=== PATIENT | female | born 1995 | race Caucasian/White ===

== ENCOUNTER 2021-02-04 02:42 | Emergency (ER) | payer OTHER ==
[2021-02-04 03:13] VITALS: BP 116/68; BMI 29.4
[2021-02-04] MEDS ORDERED: ACETAMINOPHEN 325 MG TABLET (FP) PO ONE (03:36)
[2021-02-04] MEDS ORDERED: ACETAMINOPHEN 325 MG TABLET (FP) ONE (03:53)
[2021-02-04 04:37] LABS: EPI CELLS 27 /uL (0-25.1); HYALINE CASTS 0 /uL (0-3.1); PH,URINE 7.5 (5.0-8.0); URINE APPEARANCE CLEAR; URINE BACTERIA 662 /uL (0-1359); URINE BILIRUBIN NEGATIVE (NEGATIVE); URINE COLOR YELLOW; URINE GLUCOSE (UA) NEGATIVE (NEGATIVE); URINE KETONE NEGATIVE (NEGATIVE); URINE LEUK ESTERASE 3+ (NEGATIVE); URINE NITRITE NEGATIVE (NEGATIVE); URINE PROTEIN NEGATIVE (NEGATIVE); URINE RBC 1 /uL (0-23.9); URINE UROBILINOGEN 0.2 mg/dL (0.2-1.0); URINE WBC 60 /uL (0-25.8)
[2021-02-04 05:16] VITALS: PULSE 110; TEMP 99.6
== END 2021-02-04 05:17 | disposition home or self-care (01) ==
LOC: JER 02:42
DX: O23.43 Unspecified infection of urinary tract in pregnancy, third trimester (principal); B34.9 Viral infection, unspecified; Z3A.29 29 weeks gestation of pregnancy
CPT/HCPCS: 81003; 87086; 87804; 87807; 99283-25; C9803; U0003; U0005

== ENCOUNTER 2021-04-09 17:00 | Inpatient (IN) | payer OTHER ==
[2021-04-09] MEDS ORDERED: ELECTROLYTE-148 SOLN 500 ML IV ONE ×2 (17:35→23:00)
[2021-04-09] MEDS ORDERED: AMPICILLIN SODIUM 2 GM VIAL ONE (17:45)
[2021-04-09] MEDS ORDERED: SODIUM CHLORIDE 100 ML IVPB ONE (17:45)
[2021-04-09] MEDS ORDERED: AMPICILLIN - 2 GM in SODIUM CHLORIDE 100 ML IVPB ONE (18:00)
[2021-04-09 18:18] LABS: BASO % 0.3 % (0-2.0); EOS % 0.6 % (0-4.5); HEMATOCRIT 36.5 % (32.4-45.2); HEMOGLOBIN 12.2 GM/dL (10.7-15.3); LYMPH % 8.9 % (8-40); MCH 26.3 pg (25.7-33.7); MCHC 33.4 g/dl (32.0-36.0); MEAN CELL VOLUME 78.7 fl (80-96); MEAN PLT VOLUME 8.4 fl (7.5-11.1); MONO % 6.5 % (3.8-10.2); NEUT % 83.7 % (42.8-82.8); PLATELET COUNT 316 10^3/uL (134-434); RBC 4.64 M/mm3 (3.60-5.2); RDW 15.9 % (11.6-15.6); WHITE BLOOD COUNT 12.2 K/mm3 (4.0-10.0)
[2021-04-09 18:26] LABS: INR 0.91 (0.83-1.09); PROTHROMBIN TIME (PATIENT) 10.5 SEC (9.7-13.0)
[2021-04-09 18:29] LABS: ACTIVATED PTT 28.4 SECONDS (25.2-36.5)
[2021-04-09 18:35] VITALS: BMI 32.0
[2021-04-09 18:44] LABS: CALCIUM 8.4 mg/dL (8.5-10.1)
[2021-04-09 18:45] LABS: BLOOD UREA NITROGEN 4.6 mg/dL (7-18)
[2021-04-09 18:48] LABS: CREATININE 0.5 mg/dL (0.55-1.3)
[2021-04-09] MEDS: ELECTROLYTE-148 SOLN 1,000 ML IV SCH (21:15)
[2021-04-09] MEDS: AMPICILLIN - 1 GM in SODIUM CHLORIDE 100 ML IVPB SCH (22:00)
[2021-04-09] MEDS ORDERED: AMPICILLIN SODIUM 1 GM VIAL ONE (22:03)
[2021-04-09] MEDS ORDERED: morphine SULFATE/PF 1 MG/2 ML (2cc Syringe - QUVA) ONE (22:25)
[2021-04-09] MEDS ORDERED: CITRIC ACID/SODIUM CITRATE 30 ML UNIT-DOSE CUP PO ONE ×2 (23:00)
[2021-04-09] MEDS ORDERED: ceFAZolin SODIUM 1 GM VIAL ONE (23:40)
[2021-04-09] MEDS ORDERED: OXYTOCIN 10 UNITS/ML VIAL ONE (23:40)
[2021-04-10] MEDS ORDERED: ELECTROLYTE-148 SOLN 500 ML IV ONE
[2021-04-10] MEDS ORDERED: OXYTOCIN 10 UNITS/ML VIAL ONE (00:27)
[2021-04-10] MEDS ORDERED: KETOROLAC TROMETHAMINE 30 MG/1 ML VIAL ONE (00:27)
[2021-04-10] MEDS ORDERED: DEXAMETHASONE SOD PHOSPHATE 4 MG/1 ML VIAL ONE (00:27)
[2021-04-10] MEDS ORDERED: ONDANSETRON 4 MG/2 ML VIAL ONE (00:27)
[2021-04-10] MEDS ORDERED: ACETAMINOPHEN 325 MG TABLET (FP) PO PRN ×2 (01:18→01:29)
[2021-04-10] MEDS ORDERED: WITCH HAZEL 50% (TUCKS) 40 PAD/JAR PAD TP PRN (01:18)
[2021-04-10] MEDS ORDERED: IBUPROFEN 800 MG/8 ML IJ IVPB PRN (01:18)
[2021-04-10] MEDS ORDERED: METHYLERGONOVINE MALEATE 0.2 MG/1 ML AMP IM PRN (01:18)
[2021-04-10] MEDS ORDERED: ONDANSETRON 4 MG/2 ML VIAL IVPUSH PRN (01:29)
[2021-04-10] MEDS ORDERED: morphine SULFATE/PF 1 MG/2 ML (2cc Syringe - QUVA) EP ONE (01:29)
[2021-04-10] MEDS ORDERED: OXYTOCIN 20 UNITS in 0.9% NS 20 UNIT/1,000 ML INFUS.BAG IV SCH (01:30)
[2021-04-10 01:41] LABS: CORD BASE EXCESS -8.9 mmol/L (0-2); CORD HCO3 20.7 mmHg (20-29); CORD pH 7.156 (7.14-7.44)
[2021-04-10] MEDS ORDERED: OXYTOCIN 20 UNITS in 0.9% NS 20 UNIT/1,000 ML INFUS.BAG IV ONE (01:46)
[2021-04-10 01:49] LABS: CORD HCO3 22.9 mmHg (20-29); CORD PCO2 77.7 mmHg (30-78); CORD pH 7.088 (7.14-7.44)
[2021-04-10] MEDS: AMPICILLIN - 1 GM in SODIUM CHLORIDE 100 ML IVPB SCH ×2 (03:18→06:38)
[2021-04-10] MEDS: ENOXAPARIN NA (PORCINE) 40 MG/0.4 ML DISP.SYRIN SQ SCH (09:28)
[2021-04-10] MEDS: PRENATAL VITAMINS W/ FOLIC ACID TABLET (FP) PO SCH (09:31)
[2021-04-10] MEDS ORDERED: oxyCODONE HCL 5 MG TABLET PO PRN ×2 (13:19)
[2021-04-10 15:07] LABS: SARS-CoV-2 NAA Not Detected (Not Detected)
[2021-04-10] MEDS: IBUPROFEN 600 MG TABLET (FP) PO PRN (20:46)
[2021-04-10] MEDS: SIMETHICONE 80 MG TAB.CHEW (FP) PO PRN (20:47)
[2021-04-10] MEDS: ELECTROLYTE-148 SOLN 1,000 ML IV SCH (22:05)
[2021-04-11] MEDS ORDERED: BISACODYL 10 MG SUPP.RECT RC PRN (01:19)
[2021-04-11] MEDS: IBUPROFEN 600 MG TABLET (FP) PO PRN ×3 (08:02→23:14)
[2021-04-11] MEDS: SIMETHICONE 80 MG TAB.CHEW (FP) PO PRN ×3 (08:02→23:14)
[2021-04-11 09:25] LABS: BASO % 0.2 % (0-2.0); EOS % 1.3 % (0-4.5); HEMATOCRIT 31.1 % (32.4-45.2); LYMPH % 16.9 % (8-40); MCH 25.9 pg (25.7-33.7); MCHC 32.2 g/dl (32.0-36.0); MEAN CELL VOLUME 80.4 fl (80-96); MEAN PLT VOLUME 8.6 fl (7.5-11.1); MONO % 6.1 % (3.8-10.2); NEUT % 75.5 % (42.8-82.8); PLATELET COUNT 287 10^3/uL (134-434); RBC 3.87 M/mm3 (3.60-5.2); RDW 16.7 % (11.6-15.6); WHITE BLOOD COUNT 9.8 K/mm3 (4.0-10.0)
[2021-04-11] MEDS: ENOXAPARIN NA (PORCINE) 40 MG/0.4 ML DISP.SYRIN SQ SCH (09:44)
[2021-04-11] MEDS: PRENATAL VITAMINS W/ FOLIC ACID TABLET (FP) PO SCH (09:45)
[2021-04-12] MEDS: ELECTROLYTE-148 SOLN 1,000 ML IV SCH (00:34)
[2021-04-12] MEDS: PRENATAL VITAMINS W/ FOLIC ACID TABLET (FP) PO SCH (09:45)
[2021-04-12] MEDS: ENOXAPARIN NA (PORCINE) 40 MG/0.4 ML DISP.SYRIN SQ SCH (09:45)
[2021-04-12] MEDS: SIMETHICONE 80 MG TAB.CHEW (FP) PO PRN ×2 (13:41→21:57)
[2021-04-12] MEDS: IBUPROFEN 600 MG TABLET (FP) PO PRN ×2 (13:41→21:57)
[2021-04-13] MEDS: IBUPROFEN 600 MG TABLET (FP) PO PRN (09:11)
[2021-04-13] MEDS: ENOXAPARIN NA (PORCINE) 40 MG/0.4 ML DISP.SYRIN SQ SCH (09:11)
[2021-04-13] MEDS: PRENATAL VITAMINS W/ FOLIC ACID TABLET (FP) PO SCH (09:11)
[2021-04-13 09:25] LABS: BASO % 0.3 % (0-2.0); EOS % 3.2 % (0-4.5); HEMATOCRIT 33.5 % (32.4-45.2); LYMPH % 20.6 % (8-40); MCH 26.2 pg (25.7-33.7); MCHC 32.9 g/dl (32.0-36.0); MEAN CELL VOLUME 79.7 fl (80-96); MEAN PLT VOLUME 8.4 fl (7.5-11.1); MONO % 6.4 % (3.8-10.2); NEUT % 69.5 % (42.8-82.8); PLATELET COUNT 340 10^3/uL (134-434); RBC 4.21 M/mm3 (3.60-5.2); WHITE BLOOD COUNT 6.6 K/mm3 (4.0-10.0)
[2021-04-13 10:49] VITALS: BP 104/71; PULSE 73; TEMP 97.7
== END 2021-04-13 19:45 | disposition home or self-care (01) | DRG 540 ==
LOC: JDEL 17:00 → JLDR 17:35 → J3W 04-10 03:04
PROVIDERS: ADMIT Obstetrics & Gynecology; ATTEND Obstetrics & Gynecology
PROC: 10D00Z1 Extraction of Products of Conception, Low, Open Approach (ICD-10-PCS; principal; 2021-04-10)
DX: O76 Abnormality in fetal heart rate and rhythm complicating labor and delivery (principal); O42.02 Full-term premature rupture of membranes, onset of labor within 24 hours of rupture; O77.0 Labor and delivery complicated by meconium in amniotic fluid; O99.824 Streptococcus B carrier state complicating childbirth; O69.81X0 Labor and delivery complicated by cord around neck, without compression, not applicable or unspecified; Z3A.39 39 weeks gestation of pregnancy; Z37.0 Single live birth
CPT/HCPCS: 36415; 36600; 80048; 82803; 85025; 85610; 85730; 86780; 86850; 86900; 86901; 88307-TC; C9803; U0003; U0005

== ENCOUNTER 2022-06-19 09:10 | Inpatient (IN) | payer OTHER ==
[2022-06-19] MEDS: ELECTROLYTE-148 SOLN 1,000 ML IV SCH (09:30)
[2022-06-19] MEDS ORDERED: AMPICILLIN SODIUM 2 GM VIAL ONE (10:00)
[2022-06-19] MEDS ORDERED: SODIUM CHLORIDE 100 ML IVPB ONE (10:00)
[2022-06-19] MEDS ORDERED: FENTANYL CITRATE/PF 50 MCG/ML VIAL ONE ×2 (10:12→13:07)
[2022-06-19] MEDS ORDERED: FENTANYL/BUPIVACAINE/NS/PF - PCEA - 50 ML DISP.SYRIN EP ONE ×2 (10:14→12:52)
[2022-06-19 10:21] LABS: BASO % 0.6 % (0-2.0); EOS % 0.7 % (0-4.5); HEMATOCRIT 32.9 % (32.4-45.2); HEMOGLOBIN 10.8 GM/dL (10.7-15.3); MCH 22.9 pg (25.7-33.7); MCHC 32.8 g/dl (32.0-36.0); MEAN CELL VOLUME 69.9 fl (80-96); MEAN PLT VOLUME 8.3 fl (7.5-11.1); MONO % 6.5 % (3.8-10.2); NEUT % 76.2 % (42.8-82.8); PLATELET COUNT 314 10^3/uL (134-434); RBC 4.71 M/mm3 (3.60-5.2); RDW 16.9 % (11.6-15.6)
[2022-06-19 10:29] LABS: INR 0.95 (0.83-1.09)
[2022-06-19 10:32] LABS: ACTIVATED PTT 25.6 SECONDS (25.2-36.5)
[2022-06-19 10:46] LABS: POTASSIUM 4.3 mmol/L (3.5-5.1)
[2022-06-19 10:47] LABS: CALCIUM 8.8 mg/dL (8.5-10.1)
[2022-06-19 10:48] LABS: BLOOD UREA NITROGEN 5.2 mg/dL (7-18)
[2022-06-19 10:51] LABS: CREATININE 0.6 mg/dL (0.55-1.3)
[2022-06-19 11:02] VITALS: BMI 32.0
[2022-06-19] MEDS ORDERED: AMPICILLIN - 2 GM in SODIUM CHLORIDE 100 ML IVPB ONE (11:06)
[2022-06-19] MEDS ORDERED: FENTANYL/BUPIVACAINE/NS/PF - PCEA - 50 ML DISP.SYRIN EP SCH (12:30)
[2022-06-19] MEDS ORDERED: NALOXONE HCL 0.4 MG/ML VIAL IVPUSH PRN (12:30)
[2022-06-19] MEDS ORDERED: ONDANSETRON 4 MG/2 ML VIAL ONE (13:12)
[2022-06-19] MEDS ORDERED: ceFAZolin SODIUM 1 GM VIAL ONE (13:12)
[2022-06-19] MEDS ORDERED: KETOROLAC TROMETHAMINE 30 MG/1 ML VIAL ONE (13:12)
[2022-06-19] MEDS ORDERED: OXYTOCIN 10 UNITS/ML VIAL ONE (13:12)
[2022-06-19] MEDS ORDERED: TRIAMCINOLONE ACETONIDE 40 MG/ML 10 ML VIAL SQ ONE (14:30)
[2022-06-19] MEDS ORDERED: TRIAMCINOLONE ACET 40MG/1ML VIAL SQ ONE (14:30)
[2022-06-19] MEDS ORDERED: ACETAMINOPHEN 325 MG TABLET (FP) PO PRN (15:04)
[2022-06-19] MEDS ORDERED: METHYLERGONOVINE MALEATE 0.2 MG/1 ML AMP IM PRN (15:04)
[2022-06-19] MEDS ORDERED: ONDANSETRON 4 MG/2 ML VIAL IVPUSH PRN (15:05)
[2022-06-19] MEDS ORDERED: morphine SULFATE/PF 1 MG/2 ML (2cc Syringe - QUVA) EP ONE (15:05)
[2022-06-19] MEDS ORDERED: ACETAMINOPHEN 1000 MG/100 ML BAG IVPB ONE (15:09)
[2022-06-19 15:22] LABS: CORD BASE EXCESS -4.1 mmol/L (0-2); CORD HCO3 21.6 mmHg (20-29); CORD PCO2 42.2 mmHg (30-78); CORD pH 7.327 (7.14-7.44)
[2022-06-19 15:25] LABS: CORD BASE EXCESS -4.5 mmol/L (0-2); CORD HCO3 22.3 mmHg (20-29); CORD PCO2 47.6 mmHg (30-78); CORD pH 7.288 (7.14-7.44)
[2022-06-19] MEDS ORDERED: OXYTOCIN 20 UNITS in 0.9% NS 20 UNIT/1,000 ML INFUS.BAG IV ONE (16:04)
[2022-06-19] MEDS ORDERED: ACETAMINOPHEN INJECTION 100 ML IVPB ONE (16:04)
[2022-06-19] MEDS: OXYTOCIN 20 UNITS in 0.9% NS 20 UNIT/1,000 ML INFUS.BAG IV SCH (16:08)
[2022-06-19] MEDS ORDERED: IBUPROFEN 800 MG/8 ML IJ IVPB PRN (20:27)
[2022-06-19] MEDS ORDERED: ACETAMINOPHEN 1000 MG/100 ML BAG IVPB PRN (20:27)
[2022-06-20] MEDS ORDERED: oxyCODONE HCL 5 MG TABLET PO PRN (03:05)
[2022-06-20] MEDS: OXYTOCIN 20 UNITS in 0.9% NS 20 UNIT/1,000 ML INFUS.BAG IV SCH (06:03)
[2022-06-20 08:28] LABS: BASO % 0.5 % (0-2.0); EOS % 0.1 % (0-4.5); HEMATOCRIT 28.7 % (32.4-45.2); HEMOGLOBIN 9.3 GM/dL (10.7-15.3); LYMPH % 12.2 % (8-40); MCH 22.8 pg (25.7-33.7); MCHC 32.2 g/dl (32.0-36.0); MEAN CELL VOLUME 70.7 fl (80-96); MEAN PLT VOLUME 9.1 fl (7.5-11.1); MONO % 5.6 % (3.8-10.2); NEUT % 81.6 % (42.8-82.8); PLATELET COUNT 271 10^3/uL (134-434); RBC 4.06 M/mm3 (3.60-5.2); RDW 16.7 % (11.6-15.6)
[2022-06-20] MEDS: IBUPROFEN 600 MG TABLET (FP) PO PRN ×2 (10:21→19:06)
[2022-06-20] MEDS: ENOXAPARIN NA (PORCINE) 40 MG/0.4 ML DISP.SYRIN SQ SCH (10:23)
[2022-06-20] MEDS: PRENATAL VITAMINS W/ FOLIC ACID TABLET (FP) PO SCH (11:58)
[2022-06-20] MEDS ORDERED: BISACODYL 10 MG SUPP.RECT RC PRN (15:05)
[2022-06-21] MEDS: IBUPROFEN 600 MG TABLET (FP) PO PRN ×4 (02:35→20:29)
[2022-06-21] MEDS: ELECTROLYTE-148 SOLN 1,000 ML IV SCH ×2 (07:42→17:16)
[2022-06-21] MEDS: ENOXAPARIN NA (PORCINE) 40 MG/0.4 ML DISP.SYRIN SQ SCH (09:33)
[2022-06-21] MEDS: PRENATAL VITAMINS W/ FOLIC ACID TABLET (FP) PO SCH (09:35)
[2022-06-21] MEDS: FERROUS SO4 325 MG TABLET (FP) PO SCH (09:35)
[2022-06-21] MEDS: OXYTOCIN 20 UNITS in 0.9% NS 20 UNIT/1,000 ML INFUS.BAG IV SCH (17:16)
[2022-06-21] MEDS ORDERED: SIMETHICONE 80 MG TAB.CHEW (FP) PO PRN (20:53)
[2022-06-22 08:38] LABS: BASO % 0.4 % (0-2.0); EOS % 1.3 % (0-4.5); HEMATOCRIT 24.1 % (32.4-45.2); HEMOGLOBIN 7.9 GM/dL (10.7-15.3); LYMPH % 26.7 % (8-40); MCHC 32.7 g/dl (32.0-36.0); MEAN CELL VOLUME 70.3 fl (80-96); MEAN PLT VOLUME 8.4 fl (7.5-11.1); MONO % 6.6 % (3.8-10.2); PLATELET COUNT 288 10^3/uL (134-434); RBC 3.43 M/mm3 (3.60-5.2); RDW 17.3 % (11.6-15.6)
[2022-06-22] MEDS: IBUPROFEN 600 MG TABLET (FP) PO PRN (08:43)
[2022-06-22] MEDS: FERROUS SO4 325 MG TABLET (FP) PO SCH (11:06)
[2022-06-22] MEDS: ENOXAPARIN NA (PORCINE) 40 MG/0.4 ML DISP.SYRIN SQ SCH (11:06)
[2022-06-22] MEDS: PRENATAL VITAMINS W/ FOLIC ACID TABLET (FP) PO SCH (11:06)
[2022-06-22 11:33] VITALS: BP 133/62; PULSE 80; RESP 16; TEMP 98.6
== END 2022-06-22 12:17 | disposition home or self-care (01) | DRG 540 ==
LOC: JDEL 09:10 → JLDR 09:55 → J3W 17:00
PROVIDERS: ADMIT Obstetrics & Gynecology; ATTEND Obstetrics & Gynecology
PROC: 10D00Z1 Extraction of Products of Conception, Low, Open Approach (ICD-10-PCS; principal; 2022-06-19)
DX: O34.211 Maternal care for low transverse scar from previous cesarean delivery (principal); N85.8 Other specified noninflammatory disorders of uterus; O33.9 Maternal care for disproportion, unspecified; O77.0 Labor and delivery complicated by meconium in amniotic fluid; O99.02 Anemia complicating childbirth; O99.824 Streptococcus B carrier state complicating childbirth; Z3A.38 38 weeks gestation of pregnancy; Z37.0 Single live birth
CPT/HCPCS: 36415; 36600; 80048; 82803; 85025; 85610; 85730; 86780; 86850; 86900; 86901; 88304-TC; 88307-TC; 94010; C9803-CS; U0003; U0005